=== PATIENT | female | born 1990 | race Caucasian/White ===

== ENCOUNTER 2018-08-10 18:14 | Emergency (ER) | payer OTHER ==
--- NOTE | 2018-08-10 18:51 | EDPHYS ---
Physician Documentation [facility] Name: Nicole Robles Age: 27 yrs Sex: Female : 1990 Arrival Date: 08/10/2018 Time: 18:17 Bed 18 Private MD: None, None ED Physician Anderson Isidro HPI: 08/10 18:46 This 27 yrs old Female presents to ER via Ambulatory with complaints of Flu ma2 Symptoms. 18:46 The patient or guardian reports cough, flu symptoms. Onset: The symptoms/episode ma2 began/occurred acutely, 2 day(s) ago. Severity of symptoms: At their worst the symptoms were moderate, in the emergency department the symptoms are unchanged. Modifying factors: The symptoms are alleviated by nothing, the symptoms are aggravated by nothing. Associated signs and symptoms: Pertinent positives: earache, rhinorrhea, sore throat, Pertinent negatives: chest pain, diarrhea, fever. The patient has experienced similar episodes in the past. here with uri symptoms . 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 - Social history:: Smoking status: Patient/guardian denies using tobacco, Patient/guardian denies using alcohol, street drugs, The patient lives with family. - Ebola Screening: : No symptoms or risks identified at this time. - Family history:: not pertinent. ROS: 18:46 Cardiovascular: Negative for chest pain, palpitations, and edema, Respiratory: Negative ma2 for shortness of breath, cough, wheezing, and pleuritic chest pain, Abdomen/GI: Negative for abdominal pain, nausea, diarrhea, and constipation, Skin: Negative for injury, rash, and discoloration, Neuro: Negative for headache, weakness, numbness, tingling, and seizure. 18:46 ENT: Positive for ear pain, rhinorrhea, sinus congestion, sore throat, Negative for injury or acute deformity, Gum pain pulling at ears, Teeth pain tinnitus. 18:46 All other systems are negative. Exam: 18:46 Constitutional: This is a well developed, well nourished patient who is awake, alert, ma2 and in no acute distress. Head/Face: Normocephalic, atraumatic. Eyes: Pupils equal round and reactive to light, extra-ocular motions intact. Lids and lashes normal. Conjunctiva and sclera are non-icteric and not injected. Cornea within normal limits. Periorbital areas with no swelling, redness, or edema. Neck: Trachea midline, no thyromegaly or masses palpated, and no cervical lymphadenopathy. Supple, full range of motion without nuchal rigidity, or vertebral point tenderness. No Meningismus. Chest/axilla: Normal chest wall appearance and motion. Nontender with no deformity. No lesions are appreciated. Cardiovascular: Regular rate and rhythm with a normal S1 and S2. No gallops, murmurs, or rubs. Normal PMI, no JVD. No pulse deficits. Respiratory: Lungs have equal breath sounds bilaterally, clear to auscultation and percussion. No rales, rhonchi or wheezes noted. No increased work of breathing, no retractions or nasal flaring. 18:46 ENT: External ear(s): are unremarkable, Ear canal(s): are normal, TM's: erythema, that is moderate, bilaterally, Nose: is normal, Mouth: is normal, Posterior pharynx: Airway: normal, Tonsils: are normal in appearance, erythema, that is moderate, exudate, is not appreciated, peritonsillar mass, is not appreciated. Vital Signs: 18:22 BP 127 / 75; Pulse 103; Resp 18; Temp 98.1(TE); Pulse Ox 100% on R/A; Weight 61.23 kg la1 (M); MDM: 18:25 Patient medically screened. ma2 18:46 Differential Diagnosis: Bronchitis Upper Respiratory Infection Sinusitis Pharyngitis ma2 Otitis Media Viral Syndrome. Data reviewed: vital signs, nurses notes. Counseling: I had a detailed discussion with the patient and/or guardian regarding: the historical points, exam findings, and any diagnostic results supporting the discharge/admit diagnosis, the need for outpatient follow up. 08/10 18:46 Order name: Urine Dipstick--Ancillary (enter results) ag Administered Medications: No medications were administered Disposition: 08/10/18 18:50 Discharged to Home. Impression: Acute upper respiratory infection, unspecified. - Condition is Stable. - Discharge Instructions: Upper Respiratory Infection, Adult. - Prescriptions for Tylenol- Codeine #3 300-30 mg Oral Tablet - take 2 tablet by ORAL route every 6 hours As needed; 30 tablet. Claritin- D 24 Hour 10-240 mg Oral Tablet Sustained Release 24 hr - take 1 tablet by ORAL route once daily As needed; 20 tablet. Zithromax Z- Danny 250 mg Oral Tablet - take 1 tablet by ORAL route once daily for 3 days; 3 tablet. - Medication Reconciliation Form, Thank You Letter, Antibiotic Education, Prescription Opioid Use form. - Follow up: Private Physician; When: Tomorrow; Reason: Continuance of care. - Problem is new. - Symptoms are unchanged. Signatures: Dispatcher [employer] EDMS Markell Elizabeth RN RN la1 Thor Thakkar RN RN hj Anderson Isidro MD MD ma2 Corrections: (The following items were deleted from the chart) 18:56 18:50 08/10/2018 18:50 Discharged to Home. Impression: Acute upper respiratory hj infection, unspecified. Condition is Stable. Forms are Medication Reconciliation Form, Thank You Letter, Antibiotic Education, Prescription Opioid Use. Follow up: Private Physician; When: Tomorrow; Reason: Continuance of care. Problem is new. Symptoms are unchanged. ma2
--- NOTE | 2018-08-10 18:51 | ER ---
Nurse's Notes [facility] Name: Nicole Robles Age: 27 yrs Sex: Female : 1990 Arrival Date: 08/10/2018 Time: 18:17 Bed 18 Private MD: None, None Diagnosis: Acute upper respiratory infection, unspecified Presentation: 08/10 18:21 Presenting complaint: Patient states: fever, cough, body aches for the last 2 days. la1 Transition of care: patient was not received from another setting of care. Onset of symptoms was August 10, 2018. Risk Assessment: Do you want to hurt yourself or someone else? Patient reports no desire to harm self or others. Initial Sepsis Screen: Does the patient meet any 2 criteria? No. Patient's initial sepsis screen is negative. Does the patient have a suspected source of infection? No. Patient's initial sepsis screen is negative. Care prior to arrival: None. 18:21 Method Of Arrival: Ambulatory la1 18:21 Acuity: IKER 3 la1 Triage Assessment: 18:33 General: Appears in no apparent distress. uncomfortable, Behavior is calm, cooperative, hj appropriate for age. Pain: Complains of pain in body. 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 - Social history:: Smoking status: Patient/guardian denies using tobacco, Patient/guardian denies using alcohol, street drugs, The patient lives with family. - Ebola Screening: : No symptoms or risks identified at this time. - Family history:: not pertinent. Screenin:33 Abuse screen: Denies threats or abuse. Denies injuries from another. Nutritional hj screening: No deficits noted. Tuberculosis screening: No symptoms or risk factors identified. Fall Risk None identified. Assessment: 18:22 General: Appears in no apparent distress. uncomfortable, Behavior is calm, cooperative, hj appropriate for age. Pain: Complains of pain in body, throat. Neuro: Level of Consciousness is awake, alert, obeys commands, Oriented to person, place, time, situation, Appropriate for age. Cardiovascular: Capillary refill < 3 seconds Patient's skin is warm and dry. Respiratory: Airway is patent Respiratory effort is even, unlabored, Respiratory pattern is regular, symmetrical. GI: No signs and/or symptoms were reported involving the gastrointestinal system. : No signs and/or symptoms were reported regarding the genitourinary system. EENT: No signs and/or symptoms were reported regarding the EENT system. Derm: No signs and/or symptoms reported regarding the dermatologic system. Musculoskeletal: Reports body aches;. Vital Signs: 18:22 BP 127 / 75; Pulse 103; Resp 18; Temp 98.1(TE); Pulse Ox 100% on R/A; Weight 61.23 kg la1 (M); ED Course: 18:17 Patient arrived in ED. mr 18:17 None, None is Private Physician. mr 18:21 Triage completed. la1 18:22 Arm band placed on right wrist. la1 18:25 Anderson Isidro MD is Attending Physician. ma2 18:28 Thor Thakkar RN is Primary Nurse. hj 18:33 Patient has correct armband on for positive identification. Bed in low position. Call hj light in reach. Side rails up X 1. 18:55 No provider procedures requiring assistance completed. Patient did not have IV access hj during this emergency room visit. Administered Medications: No medications were administered Outcome: 18:50 Discharge ordered by . [facility] 18:56 Discharged to home ambulatory, with family. 18:56 Condition: stable 18:56 Discharge instructions given to patient, family, Instructed on discharge instructions, follow up and referral plans. medication usage, Demonstrated understanding of instructions, follow-up care, medications, Prescriptions given X 3. 18:56 Patient left the ED. Signatures: Funmi Peters Lee, RN RN la Thor Thakkar, RN RN Anderson Isidro MD MD [facility]
[2018-08-10 19:20] LABS: Urine Blood 2+ (NEG); Urine Glucose NEGATIVE (NEG); Urine Protein NEGATIVE (NEG); Urine Specific Gravity <1.005 (1.005-1.030); Urine pH 6.5 (5.0-7.0)
== END 2018-08-10 18:56 | disposition home or self-care (01) ==
LOC: ER 18:14
DX: J06.9 Acute upper respiratory infection, unspecified (principal); Z88.1 Allergy status to other antibiotic agents
CPT/HCPCS: 81003; 99282